=== PATIENT | male | born 1940 | race Caucasian/White ===

== ENCOUNTER → 2016-08-17 | Outpatient (CLI) | payer MEDICARE | END | disposition home or self-care (01) | LOC: PTH.S 15:00 → RAD.S 15:24 | DX: R05 Cough (principal); R63.4 Abnormal weight loss; N28.89 Other specified disorders of kidney and ureter; I71.2 Thoracic aortic aneurysm, without rupture; N40.0 Benign prostatic hyperplasia without lower urinary tract symptoms; N20.0 Calculus of kidney; M89.9 Disorder of bone, unspecified ==

== ENCOUNTER 2016-08-25 08:08 | Day surgery (SDC) | payer MEDICARE ==
[~2016-08-25] VITALS: Ht 167.6 cm; Wt 65.9 kg
== END 2016-08-25 15:14 | disposition home or self-care (01) ==
LOC: RAD.S 08:08 → EDSTATUS 08:30 → RAD.S 08:30
DX: C64.1 Malignant neoplasm of right kidney, except renal pelvis (principal); E78.5 Hyperlipidemia, unspecified; N40.0 Benign prostatic hyperplasia without lower urinary tract symptoms; D50.9 Iron deficiency anemia, unspecified; Z79.82 Long term (current) use of aspirin; Z79.899 Other long term (current) drug therapy

== ENCOUNTER 2016-09-08 06:26 | Day surgery (SDC) | payer MEDICARE ==
[~2016-09-08] VITALS: Ht 167.6 cm; Wt 65.0 kg
== END 2016-09-08 10:40 | disposition home or self-care (01) ==
LOC: RAD.S 06:26
PROC: 0QB03ZX Excision of Lumbar Vertebra, Percutaneous Approach, Diagnostic (ICD-10-PCS; principal; 2016-09-08)
DX: M89.8X8 Other specified disorders of bone, other site (principal); C64.1 Malignant neoplasm of right kidney, except renal pelvis; Z79.82 Long term (current) use of aspirin; Z79.899 Other long term (current) drug therapy